=== PATIENT | female | born 1945 | race Caucasian/White ===

== ENCOUNTER 2020-11-04 09:22 | Inpatient (IN) | payer MEDICAID ==
[~2020-11-04] VITALS: Ht 154.9 cm; Wt 54.0 kg
[2020-11-04 12:24] LABS: BASOPHILS % 0.4 % (0.0-2.0); EOSINOPHILS % 0.4 % (0.0-5.0); HEMATOCRIT. 30.4 % (36.0-48.0); LYMPHOCYTES % 18.1 % (20.0-50.0); MEAN CORPUSCULAR HEMOGLOBIN 25.7 pg (28.0-32.0); MEAN CORPUSCULAR VOLUME 77.9 fL (81.0-99.0); MONOCYTES % 8.9 % (2.0-8.0); NEUTROPHILS % 72.2 % (40.0-76.0); PLATELET 363 x1000/uL (130-400); RED BLOOD CELL COUNT 3.91 mill/uL (4.2-5.4)
[2020-11-04 12:36] LABS: CHLORIDE 84 mEq/L (98-107)
[2020-11-04] MEDS ORDERED: CEFTRIAXONE 1 G PREMIX 50 ML IV ONE (13:15)
[2020-11-04 13:28] LABS: CLARITY URINE CLEAR (CLEAR); COLOR URINE YELLOW (YELLOW); KETONES URINE NEGATIVE (NEGATIVE); LEUKOCYTE ESTERASE URINE TRACE (NEGATIVE); NITRITE URINE NEGATIVE (NEGATIVE); OCCULT BLOOD URINE NEGATIVE (NEGATIVE); PROTEIN URINE NEGATIVE (NEGATIVE); UROBILINOGEN URINE 0.2 E.U./dL (0.2-1.0)
[2020-11-04] MEDS ORDERED: SODIUM CHLORIDE 0.9% 1,000 ML IV ONE (14:30)
[2020-11-04] MEDS ORDERED: IOHEXOL-300 100 ML BOTTLE ONE (15:20)
[2020-11-05 10:51] VITALS: BP 141/59
[2020-11-05] MEDS ORDERED: ACETAMINOPHEN 325MG TABLET PO PRN (11:15)
[2020-11-05] MEDS ORDERED: ONDANSETRON HCL 4MG/2ML INJ IV PRN (11:15)
[2020-11-05 11:16] VITALS: BP 141/59
[2020-11-05] MEDS: SODIUM CHLORIDE 0.9% 1,000 ML IV SCH (11:48)
[2020-11-05] MEDS ORDERED: MAGNESIUM 2 G PREMIX 50 ML IV ONE (14:00)
[2020-11-05 16:08] VITALS: BP 145/60
[2020-11-05 17:50] LABS: CHLORIDE 94 mEq/L (98-107)
[2020-11-05] MEDS ORDERED: METF-416 MT (19:23)
[2020-11-05] MEDS ORDERED: MAX25 MT (19:23)
[2020-11-05] MEDS ORDERED: CYCL30DR EACHEYE ×2 (19:23→20:44)
[2020-11-05] MEDS ORDERED: ATEN-42 MT (19:23)
[2020-11-05] MEDS ORDERED: FERR325T6 MT (19:23)
[2020-11-05] MEDS ORDERED: GLIP5TAB12 MT (19:23)
[2020-11-05 20:00] VITALS: BP 113/53
[2020-11-05 20:23] LABS: SODIUM URINE RANDOM 48 mEq/L
[2020-11-05 21:02] VITALS: BP_SYST 127; BP_SYST 140; BP_DIAS 62; BP_DIAS 65
[2020-11-06 00:39] VITALS: BP 127/73
[2020-11-06] MEDS: SODIUM CHLORIDE 0.9% 1,000 ML IV SCH ×2 (00:50→14:51)
[2020-11-06 04:00] VITALS: BP 146/56
[2020-11-06 06:59] LABS: BASOPHILS % 0.3 % (0.0-2.0); EOSINOPHILS % 1.7 % (0.0-5.0); HEMATOCRIT. 31.1 % (36.0-48.0); HEMOGLOBIN. 10.2 g/dL (12.0-16.0); LYMPHOCYTES % 29.7 % (20.0-50.0); MEAN CORPUSCULAR HEMOGLOBIN 25.3 pg (28.0-32.0); MEAN CORPUSCULAR VOLUME 77.5 fL (81.0-99.0); MEAN PLATELET VOLUME 7.6 fl (7.4-10.4); MONOCYTES % 12.4 % (2.0-8.0); NEUTROPHILS % 55.9 % (40.0-76.0); PLATELET 357 x1000/uL (130-400); RED BLOOD CELL COUNT 4.02 mill/uL (4.2-5.4); RED CELL DISTRIBUTION WIDTH 19.4 % (11.6-14.6)
[2020-11-06 07:07] LABS: CHLORIDE 100 mEq/L (98-107)
[2020-11-06 07:12] LABS: PHOSPHORUS 3.1 mg/dL (2.5-4.9)
[2020-11-06 07:38] VITALS: BP 142/56
[2020-11-06] MEDS ORDERED: BISACODYL 10MG SUPP PR PRN (11:30)
[2020-11-06] MEDS ORDERED: BISACODYL 10MG SUPP PR SCH (11:30)
[2020-11-06] MEDS ORDERED: NA PHOS,M-B/NA PHOS,DI-BA ENEMA 118ML PR NR (14:45)
[2020-11-06] MEDS ORDERED: SORBITOL 70% SOLN 30ML PO NR (18:15)
[2020-11-06 20:00] VITALS: BP 175/79
[2020-11-06] MEDS: HYDROCODONE/ACETAMINOPHEN 10/325MG TABLET PO PRN (22:35)
[2020-11-07] VITALS (9 sets, daily range): BP systolic 107–164; BP diastolic 45–74
[2020-11-07] MEDS: SODIUM CHLORIDE 0.9% 1,000 ML IV SCH (02:23)
[2020-11-07 06:47] LABS: CHLORIDE 101 mEq/L (98-107)
[2020-11-07 07:11] LABS: PHOSPHORUS 3.3 mg/dL (2.5-4.9)
[2020-11-07 08:22] LABS: BASOPHILS % 0.7 % (0.0-2.0); EOSINOPHILS % 0.7 % (0.0-5.0); HEMATOCRIT. 30.4 % (36.0-48.0); HEMOGLOBIN. 9.7 g/dL (12.0-16.0); LYMPHOCYTES % 14.5 % (20.0-50.0); MEAN CORPUSCULAR HEMOGLOBIN 24.8 pg (28.0-32.0); MEAN CORPUSCULAR VOLUME 77.7 fL (81.0-99.0); MEAN PLATELET VOLUME 8.4 fl (7.4-10.4); MONOCYTES % 11.3 % (2.0-8.0); NEUTROPHILS % 72.8 % (40.0-76.0); PLATELET 284 x1000/uL (130-400); RED BLOOD CELL COUNT 3.91 mill/uL (4.2-5.4); RED CELL DISTRIBUTION WIDTH 19.3 % (11.6-14.6)
[2020-11-07] MEDS: HYDROCODONE/ACETAMINOPHEN 10/325MG TABLET PO PRN (08:43)
[2020-11-07] MEDS ORDERED: AMLODIPINE 5MG TABLET PO SCH (10:00)
== END 2020-11-07 18:45 | disposition home or self-care (01) | DRG 48 ==
LOC: ER 09:33 → MICUSO 15:51 → EDBEDREQ 15:57 → 6WST 11-05 08:45
PROVIDERS: ADMIT Internal Medicine; ATTEND Internal Medicine
DX: G90.8 Other disorders of autonomic nervous system (principal); E87.2 Acidosis; E87.1 Hypo-osmolality and hyponatremia; N13.8 Other obstructive and reflux uropathy; E87.8 Other disorders of electrolyte and fluid balance, not elsewhere classified; D64.9 Anemia, unspecified; E11.9 Type 2 diabetes mellitus without complications; E83.42 Hypomagnesemia; I10 Essential (primary) hypertension; I49.1 Atrial premature depolarization; Z82.49 Family history of ischemic heart disease and other diseases of the circulatory system
CPT/HCPCS: 36415; 74177; 80048; 80053; 81003; 82533; 83036; 83605; 83735; 83935; 84100; 84300; 84443; 84484; 85025; 93005; 97162; 99285; A6261; C1893; J0696; J3475; J7030; Q9967